=== PATIENT | female | born 1965 | race Caucasian/White ===

== ENCOUNTER 2019-04-02 20:45 | Emergency (ER) | payer BC, OTHER ==
[2019-04-02 21:01] VITALS: BMI 46.8
--- NOTE | 2019-04-03 01:32 | PDOC ---
History of Present Illness - General History Source: Patient Exam Limitations: No Limitations - History of Present Illness Initial Comments: 04/03/19 01:31 Patient is a 53 year old female with h/o HTN, asthma, GOUT, acid reflux, muscle spasms, restless leg syndrome, migraine, T&A, x 1, intracranial bleeding, complaining of coughing, wheezing, headaches x2 to 3 days. States when she cough she feels hot. Cough is a dry cough nonproductive. Has nasal congestion. States she has been having some nausea and posttussive vomiting. She has run out of her puffer last dose was Wednesday. No intubation due to asthma. Has been on steroids intermittently last dose was 4 months ago. Denies any fever, chills, PMD: Dr. Leonard PMX: As above PSOCHX: 5 to 6 cigarettes a day, neg etoh, neg drug ALL: Codeine, morphine, aspirin GENERAL/CONSTITUTIONAL: [No fever or chills. No weakness. No weight change.] HEAD, EYES, EARS, NOSE AND THROAT: [No change in vision. No ear pain or discharge. No sore throat.] CARDIOVASCULAR: [No chest pain or shortness of breath.] RESPIRATORY: [(+) cough, wheezing, (-) hemoptysis.] GASTROINTESTINAL: [(+) nausea, vomiting, (-) diarrhea or constipation. No rectal bleeding.] GENITOURINARY: [No dysuria, frequency, or change in urination.] MUSCULOSKELETAL: [No joint or muscle swelling or pain. No neck or back pain.] SKIN AND BREASTS: [No rash or easy bruising.] NEUROLOGIC: [No headache, vertigo, loss of consciousness, or loss of sensation.] PSYCHIATRIC: [No depression or anxiety.] ENDOCRINE: [No increased thirst. No abnormal weight change.] HEMATOLOGIC/LYMPHATIC: [No anemia, easy bleeding, or history of blood clots.] ALLERGIC/IMMUNOLOGIC: [No hives or skin allergy. No latex allergy.] GENERAL: [The patient is awake, alert, and fully oriented, in no acute distress. ] HEAD: [Normal with no signs of trauma.] EYES: [Pupils equal, round and reactive to light, extraocular movements intact, sclera anicteric, conjunctiva clear.] ENT: [Ears normal, nares patent, oropharynx clear without exudates. Moist mucous membranes.] NECK: [Normal range of motion, supple without lymphadenopathy, JVD, or masses.] LUNGS: [(+) wheezes b/l, and no crackles.] HEART: [Regular rate and rhythm, normal S1 and S2 without murmur, rub.] ABDOMEN: [Soft, nontender, normoactive bowel sounds. No guarding, no rebound. No masses.] EXTREMITIES: [Normal range of motion, no edema. No clubbing or cyanosis. No cords, erythema, or tenderness.] NEUROLOGICAL: [Cranial nerves II through XII grossly intact. Normal speech, normal gait.] PSYCH: [Normal mood, normal affect.] SKIN: [Warm, Dry, normal turgor, no rashes or lesions noted.] <Malik Messina - Last Filed: 04/03/19 02:54> <Dorene Shipman - Last Filed: 04/03/19 03:59> - General Chief Complaint: Cold Symptoms Stated Complaint: COUGH/HEADACHE Time Seen by Provider: 04/03/19 00:36 Past History - Past Medical History COPD: No CHF: Yes HTN: Yes - Surgical History Neurologic Surgery: Yes (shunt) - Psycho Social/Smoking Cessation Hx Smoking History: Current every day smoker Have you smoked in the past 12 months: Yes Number of Cigarettes Smoked Daily: 10 Information on smoking cessation initiated: No Hx Alcohol Use: No Drug/Substance Use Hx: No <Malik Messina - Last Filed: 04/03/19 02:54> <Dorene Shipman - Last Filed: 04/03/19 03:59> - Past Medical History Allergies/Adverse Reactions: Allergies Allergy/AdvReac Type Severity Reaction Status Date / Time codeine Allergy Severe Difficulty Verified 04/02/19 21:01 Breathing diflunisal Allergy Severe Difficulty Verified 04/02/19 21:01 Breathing morphine Allergy Severe Difficulty Verified 04/02/19 21:01 Breathing Home Medications: Ambulatory Orders Albuterol Sulfate Inhaler - [Ventolin Hfa Inhaler -] 1 - 2 inh PO QID #1 inhaler 04/03/19 predniSONE [Deltasone -] 40 mg PO DAILY #10 tablet 04/03/19 *Physical Exam - Vital Signs Last Vital Signs Temp Pulse Resp BP Pulse Ox 98.0 F 95 H 20 117/68 100 04/02/19 20:57 04/02/19 20:57 04/02/19 20:57 04/02/19 20:57 04/02/19 20:57 <Malik Messina - Last Filed: 04/03/19 02:54> - Vital Signs Last Vital Signs Temp Pulse Resp BP Pulse Ox 98.0 F 95 H 20 117/68 100 04/02/19 20:57 04/02/19 20:57 04/02/19 20:57 04/02/19 20:57 04/02/19 20:57 <Dorene Shipman - Last Filed: 04/03/19 03:59> ED Treatment Course - Medications Given in the ED: ED Medications Discontinued Medications Generic Name Dose Route Start Last Admin Trade Name Yifanq PRN Reason Stop Dose Admin Acetaminophen 650 mg 04/03/19 03:01 04/03/19 03:43 Tylenol - PO 04/03/19 03:02 650 mg ONCE ONE Administration Albuterol/Ipratropium 1 amp 04/03/19 02:15 04/03/19 03:16 Duoneb - NEB 04/03/19 03:01 1 amp Q15M DAPHNE Administration Prednisone 60 mg 04/03/19 02:06 04/03/19 02:53 Deltasone - PO 04/03/19 02:07 60 mg ONCE ONE Administration <Dorene Shipman - Last Filed: 04/03/19 03:59> Medical Decision Making - Medical Decision Making 04/03/19 01:31 Patient is a 53 year old female with h/o HTN, asthma, GOUT, acid reflux, muscle spasms, restless leg syndrome, migraine, T&A, x 1, intracranial bleeding, complaining of coughing, wheezing, headaches x2 to 3 days. States when she cough she feels hot. Cough is a dry cough nonproductive. Has nasal congestion. States she has been having some nausea and posttussive vomiting. She has run out of her puffer last dose was Wednesday. No intubation due to asthma. Has been on steroids intermittently last dose was 4 months ago. Denies any fever, chills, Asthma exacerbation 2/2 URI Nebs, prednisone CRX Reassess. 04/03/19 02:52 Chest x-ray with no acute infiltrates. Will endorsed to Dr. Pacheco pending treatment and disposition. <Malik Messina - Last Filed: 04/03/19 02:54> Discharge - Discharge Information Problems reviewed: Yes <Malik Messina - Last Filed: 04/03/19 02:54> - Discharge Information Problems reviewed: Yes <Dorene Shipman - Last Filed: 04/03/19 03:59> - Discharge Information Clinical Impression/Diagnosis: Upper respiratory infection Qualifiers: URI type: unspecified URI Qualified Code(s): J06.9 - Acute upper respiratory infection, unspecified Asthma exacerbation Qualifiers: Asthma severity: unspecified severity Asthma persistence: unspecified Qualified Code(s): J45.901 - Unspecified asthma with (acute) exacerbation Condition: Stable Disposition: HOME - Additional Discharge Information Prescriptions: Albuterol Sulfate Inhaler - [Ventolin Hfa Inhaler -] 1 - 2 inh PO QID #1 inhaler predniSONE [Deltasone -] 40 mg PO DAILY #10 tablet - Patient Discharge Instructions Patient Printed Discharge Instructions: DI for Asthma -- Adult, Eating a Diet Rich in Fruits and Vegetables, How to Quit Smoking
[2019-04-03] MEDS ORDERED: predniSONE 20 MG TABLET (UD) PO ONE (02:06)
[2019-04-03] MEDS ORDERED: predniSONE 20 MG TABLET (UD) ONE (02:39)
[2019-04-03] MEDS ORDERED: ALBUTEROL SO4 2.5/IPRATROPIUM 0.5 INH SOL 3 ML VIAL.NEB. NEB ONE (02:40)
[2019-04-03] MEDS: ALBUTEROL SO4 2.5/IPRATROPIUM 0.5 INH SOL 3 ML VIAL.NEB. NEB SCH ×3 (02:54→03:30)
[2019-04-03] MEDS ORDERED: ACETAMINOPHEN 325 MG TABLET (FP) PO ONE (03:01)
[2019-04-03] MEDS ORDERED: ACETAMINOPHEN 325 MG TABLET (FP) ONE (03:33)
[2019-04-03 04:07] VITALS: BP 111/67; PULSE 86; TEMP 98.1
== END 2019-04-03 04:09 | disposition home or self-care (01) ==
LOC: JERFT 20:45 → JER 20:45
PROC: 3E0F7GC Introduction of Other Therapeutic Substance into Respiratory Tract, Via Natural or Artificial Opening (ICD-10-PCS; principal; 2019-04-02)
DX: J45.901 Unspecified asthma with (acute) exacerbation (principal); J06.9 Acute upper respiratory infection, unspecified; I10 Essential (primary) hypertension; K21.9 Gastro-esophageal reflux disease without esophagitis; M10.9 Gout, unspecified; G25.81 Restless legs syndrome; G43.909 Migraine, unspecified, not intractable, without status migrainosus; Z88.5 Allergy status to narcotic agent; Z88.8 Allergy status to other drugs, medicaments and biological substances
CPT/HCPCS: 71046-TC-FY; 99283-25